=== PATIENT | male | born 1995 | race Two or more races ===

== ENCOUNTER 2017-11-23 17:12 | Emergency (ER) | payer MEDICAID ==
[~2017-11-23] VITALS: Ht 167.6 cm; Wt 106.4 kg
[2017-11-23 17:25] VITALS: BP 127/85
[2017-11-23] MEDS ORDERED: IBUPROFEN 800 MG TABLET PO STA (17:47)
[2017-11-23] MEDS ORDERED: DEXAMETHASONE 1 MG TABLET PO STA (17:47)
[2017-11-23] MEDS ORDERED: DEXAMETHASONE 4 MG TABLET ONE (17:53)
[2017-11-23] MEDS ORDERED: IBUPROFEN 200 MG TABLET ONE (17:54)
[2017-11-23] MEDS ORDERED: DEXAMETHASONE 4 MG TABLET PO ONE (18:00)
[2017-11-24] MEDS ORDERED: DEXAMETHASONE 4 MG TABLET PO SCH (07:30)
== END 2017-11-23 19:21 | disposition home or self-care (01) ==
LOC: ED 17:53
DX: J20.8 Acute bronchitis due to other specified organisms (principal); J02.0 Streptococcal pharyngitis
CPT/HCPCS: 87081; 87880; 99284

== ENCOUNTER 2017-11-25 12:21 | Emergency (ER) | payer MEDICAID ==
[~2017-11-25] VITALS: Ht 167.6 cm; Wt 106.7 kg
[2017-11-25 12:26] VITALS: BP 143/77
== END 2017-11-25 12:56 | disposition home or self-care (01) ==
LOC: ED 12:50
DX: J02.8 Acute pharyngitis due to other specified organisms (principal); B97.89 Other viral agents as the cause of diseases classified elsewhere; F17.200 Nicotine dependence, unspecified, uncomplicated
CPT/HCPCS: 99281

== ENCOUNTER 2018-03-28 11:21 | Emergency (ER) | payer MEDICAID ==
[~2018-03-28] VITALS: Ht 167.6 cm; Wt 105.7 kg
[2018-03-28 11:25] VITALS: BP 142/78
== END 2018-03-28 12:49 | disposition home or self-care (01) ==
LOC: ED 12:40
DX: J00 Acute nasopharyngitis [common cold] (principal); F17.200 Nicotine dependence, unspecified, uncomplicated
CPT/HCPCS: 71046; 99283